=== PATIENT | female | born 1965 | race Caucasian/White ===

== ENCOUNTER → 2022-10-25 | Outpatient (CLI) | payer MEDICARE, OTHER ==
[~2022-10-25] MED LIST: INFLIXIMAB-DYYB 600 MG in SODIUM CHLORIDE 0.9% 250 ML IV NR; SODIUM CHLORIDE 0.9% 500 ML 500 ML in EMPTY BAG 1 BAG IV PRN
[2022-10-25 12:40] VITALS: PULSE 69; RESP 16; TEMP 98.3
[2022-10-25 13:54] VITALS: BP 116/77
== END ==
LOC: PROCWHC3 12:02 → EDSTATUS 12:30
PROVIDERS: ATTEND Nurse Practitioner Family
DX: K50.90 Crohn's disease, unspecified, without complications (principal); Z91.048 Other nonmedicinal substance allergy status
CPT/HCPCS: 96413; Q5103; 96415

== ENCOUNTER → 2022-12-06 | Outpatient (CLI) | payer MEDICARE, OTHER ==
[2022-12-06 12:36] VITALS: TEMP 97.9
[2022-12-06 13:53] VITALS: BP 127/88; PULSE 78; RESP 15
== END ==
LOC: PROCWHC3 12:11
PROVIDERS: ATTEND Nurse Practitioner Family
DX: K50.90 Crohn's disease, unspecified, without complications (principal); Z91.048 Other nonmedicinal substance allergy status
CPT/HCPCS: 96413; 96415; Q5103

== ENCOUNTER → 2023-01-17 | Outpatient (CLI) | payer MEDICARE, OTHER ==
[2023-01-17 12:26] VITALS: RESP 16; TEMP 97.9
[2023-01-17 13:51] VITALS: BP 111/77; PULSE 80
== END ==
LOC: PROCWHC3 11:56
PROVIDERS: ATTEND Nurse Practitioner Family
DX: K51.90 Ulcerative colitis, unspecified, without complications (principal); Z91.048 Other nonmedicinal substance allergy status
CPT/HCPCS: 96413; 96415; Q5103

== ENCOUNTER → 2023-02-28 | Outpatient (CLI) | payer MEDICARE, OTHER ==
[2023-02-28 13:04] VITALS: RESP 16; TEMP 97.7
[2023-02-28 14:41] VITALS: BP 147/95; PULSE 79
== END ==
LOC: PROCWHC3 12:01
PROVIDERS: ATTEND Nurse Practitioner Family
DX: K50.90 Crohn's disease, unspecified, without complications (principal); Z91.048 Other nonmedicinal substance allergy status
CPT/HCPCS: 96413; 96415; Q5103

== ENCOUNTER → 2023-04-11 | Outpatient (CLI) | payer MEDICARE, OTHER ==
[2023-04-11 13:22] VITALS: TEMP 97.7
[2023-04-11 13:46] VITALS: RESP 16
[2023-04-11 14:35] VITALS: BP 110/78; PULSE 80
== END ==
LOC: PROCWHC3 11:59
PROVIDERS: ATTEND Nurse Practitioner Family
DX: K50.90 Crohn's disease, unspecified, without complications (principal); Z91.048 Other nonmedicinal substance allergy status
CPT/HCPCS: 96413; 96415; Q5103

== ENCOUNTER → 2023-05-23 | Outpatient (CLI) | payer MEDICARE, OTHER ==
[2023-05-23] MEDS: SODIUM CHLORIDE 0.9% 500 ML 500 ML in EMPTY BAG 1 BAG IV PRN (12:57)
[2023-05-23] MEDS: INFLIXIMAB-DYYB 600 MG in SODIUM CHLORIDE 0.9% 250 ML IV NR (12:58)
[2023-05-23 13:14] VITALS: RESP 16; TEMP 98
[2023-05-23 13:17] LABS: Basophils # (A) 0.1 k/uL (0-0.2); Basophils % (A) 1 %; Eosinophils # (A) 0.3 k/uL (0-0.7); Eosinophils % (A) 5 %; HCT 47.2 % (34.0-46.0); HGB 15.4 gm/dL (11.4-16.0); Lymphocytes # (A) 2.2 k/uL (1.0-4.8); Lymphocytes % (A) 33 %; MCHC 32.7 g/dL (31.0-37.0); MCV 88.6 fL (80.0-100.0); Mean Platelet Volume 7.5; Monocytes # (A) 0.5 k/uL (0-1.0); Monocytes % (A) 7 %; Neutrophils # (A) 3.6 k/uL (1.3-7.7); Neutrophils % (A) 53 %; Platelet Count 296 k/uL (150-450); RBC 5.33 m/uL (3.80-5.40); RDW 12.8 % (11.5-15.5); WBC 6.9 k/uL (3.8-10.6)
[2023-05-23 13:35] LABS: ALT 36 U/L (4-34); AST 32 U/L (14-36); African American GFR (CKD) 76 (>60 ml/min/1.73 sqM); Albumin 4.1 g/dL (3.5-5.0); Alkaline Phosphatase 57 U/L (38-126); Anion Gap 7 mmol/L; Blood Urea Nitrogen 17 mg/dL (7-17); Calcium 9.5 mg/dL (8.4-10.2); Carbon Dioxide 22 mmol/L (22-30); Chloride 107 mmol/L (98-107); Glucose 97 mg/dL (74-99); Non-African American GFR(CKD) 66 (>60 ml/min/1.73 sqM); Potassium 4.6 mmol/L (3.5-5.1); Sodium 136 mmol/L (137-145); Total Bilirubin 0.5 mg/dL (0.2-1.3); Total Protein 7.4 g/dL (6.3-8.2)
[2023-05-23 14:18] VITALS: PULSE 77
[2023-05-23 14:50] VITALS: BP 116/80
== END ==
LOC: PROCWHC3 12:09
PROVIDERS: ATTEND Internal Medicine Gastroenterology
DX: K50.90 Crohn's disease, unspecified, without complications (principal); Z88.3 Allergy status to other anti-infective agents
CPT/HCPCS: 80053; 85025; 96413; 96415; Q5103

== ENCOUNTER → 2023-07-04 | Outpatient (CLI) | payer MEDICARE, OTHER ==
[2023-07-04] MEDS: SODIUM CHLORIDE 0.9% 500 ML 500 ML in EMPTY BAG 1 BAG IV PRN (13:03)
[2023-07-04 13:07] LABS: Basophils # (A) 0.1 k/uL (0-0.2); Basophils % (A) 1 %; Eosinophils # (A) 0.4 k/uL (0-0.7); Eosinophils % (A) 6 %; HCT 44.9 % (34.0-46.0); HGB 14.7 gm/dL (11.4-16.0); Lymphocytes # (A) 2.5 k/uL (1.0-4.8); Lymphocytes % (A) 38 %; MCH 29.2 pg (25.0-35.0); MCHC 32.7 g/dL (31.0-37.0); MCV 89.5 fL (80.0-100.0); Mean Platelet Volume 7.3; Monocytes # (A) 0.4 k/uL (0-1.0); Monocytes % (A) 6 %; Neutrophils % (A) 46 %; Platelet Count 311 k/uL (150-450); RBC 5.02 m/uL (3.80-5.40); RDW 12.9 % (11.5-15.5); WBC 6.5 k/uL (3.8-10.6)
[2023-07-04 13:08] VITALS: RESP 16; TEMP 97.6
[2023-07-04] MEDS: INFLIXIMAB-DYYB 600 MG in SODIUM CHLORIDE 0.9% 250 ML IV NR (13:08)
[2023-07-04 14:09] LABS: ALT 36 U/L (4-34); AST 27 U/L (14-36); African American GFR (CKD) 78 (>60 ml/min/1.73 sqM); Alkaline Phosphatase 56 U/L (38-126); Anion Gap 8 mmol/L; Blood Urea Nitrogen 17 mg/dL (7-17); Calcium 9.4 mg/dL (8.4-10.2); Carbon Dioxide 22 mmol/L (22-30); Chloride 109 mmol/L (98-107); Glucose 102 mg/dL (74-99); Non-African American GFR(CKD) 68 (>60 ml/min/1.73 sqM); Potassium 3.8 mmol/L (3.5-5.1); Sodium 139 mmol/L (137-145); Total Bilirubin 0.4 mg/dL (0.2-1.3); Total Protein 7.5 g/dL (6.3-8.2)
[2023-07-04 14:38] VITALS: BP 107/77; PULSE 76
== END ==
LOC: PROCWHC3 12:33
PROVIDERS: ATTEND Internal Medicine Gastroenterology
DX: K50.90 Crohn's disease, unspecified, without complications (principal)
CPT/HCPCS: 80053; 85025; 96413; 96415; Q5103

== ENCOUNTER → 2023-07-11 | Outpatient (CLI) | payer MEDICARE, OTHER ==
--- NOTE | 2023-07-12 07:27 | BD ---
EXAMINATION TYPE: Axial Bone Density DATE OF EXAM: 07/11/2023 CLINICAL HISTORY: 58 years old Female. ICD-10 CODE: Z13.820 Screening for osteoporosis Height: 5 ft 1 in Weight: 126 FRAX RISK QUESTIONS: Alcohol (3 or more units per day): no Family History (Parent hip fracture): no Glucocorticoids (More than 3mos): no (Ex: prednisone, prednisolone, methylprednisolone, dexamethasone, and hydrocortisone). History of Fracture in Adulthood: no Secondary Osteoporosis: 1. Type 1 Diabetes: no 2. Hyperthyroidism: no 3. Menopause before 45: no 4. Malnutrition: yes 5. Chronic liver disease: no Rheumatoid Arthritis: no Current Tobacco Use: no RISK FACTORS HISTORY OF: Surgery to Spine/Hip(right/left)/Wrist (right/left): no MEDICATIONS: Thyroid Medications: none Which medication: How Long: Osteoporosis Medications: none Which medication: How Long: EXAM MEASUREMENTS: Bone mineral densitometry was performed using the [employer]. Bone mineral density as measured about the Lumbar spine is: ----- L1-L4(G/cm2): 0.976 T Score Values are as follows: ----- L1: -1.6 ----- L2: -1.8 ----- L3: -1.7 ----- L4: -1.9 ----- L1-L4: -1.7 Z Score Values are as follows: ----- L1: -0.1 ----- L2: -0.3 ----- L3: -0.2 ----- L4: -0.4 ----- L1-L4: -0.2 baseline Bone mineral density about the R hip (g/cm2): 0.616 Bone mineral density about the L hip (g/cm2): 0.710 T Score values are as follows: -----R Neck: -3.0 -----L Neck: -2.4 -----R Total: -2.6 -----L Total: -2.4 Z Score values are as follows: -----R Neck: -1.6 -----L Neck: -0.6 -----R Total: -1.4 -----L Total: -1.3 baseline FRAX%s: The graph provided illustrates a 14.7 % chance for a major osteoporotic fx and a 4.2 % chance for the hips probability for fx in 10 years time. IMPRESSION: Osteoporosis (T Score less than -2.5). There is increased fracture risk and therapy is usually indicated based on age. Re-Screen 1-2 years. NOTE: T-SCORE=SD OF THE YOUNG ADULT MEAN.
== END | disposition home or self-care (01) ==
LOC: RADBDWWP 12:00
PROVIDERS: ATTEND Internal Medicine
DX: Z13.820 Encounter for screening for osteoporosis (principal); M85.89 Other specified disorders of bone density and structure, multiple sites; M81.0 Age-related osteoporosis without current pathological fracture; E46 Unspecified protein-calorie malnutrition
CPT/HCPCS: 77080

== ENCOUNTER → 2023-08-15 | Outpatient (CLI) | payer MEDICARE ==
[2023-08-15] MEDS: SODIUM CHLORIDE 0.9% 500 ML 500 ML in EMPTY BAG 1 BAG IV PRN (12:16)
[2023-08-15] MEDS: INFLIXIMAB-DYYB 600 MG in SODIUM CHLORIDE 0.9% 190 ML IV NR (12:22)
[2023-08-15 12:32] LABS: Basophils # (A) 0.1 k/uL (0-0.2); Basophils % (A) 1 %; Eosinophils # (A) 0.4 k/uL (0-0.7); Eosinophils % (A) 5 %; HCT 44.8 % (34.0-46.0); HGB 14.6 gm/dL (11.4-16.0); Lymphocytes # (A) 2.7 k/uL (1.0-4.8); Lymphocytes % (A) 34 %; MCH 28.5 pg (25.0-35.0); MCHC 32.5 g/dL (31.0-37.0); MCV 87.5 fL (80.0-100.0); Mean Platelet Volume 7.3; Monocytes # (A) 0.5 k/uL (0-1.0); Monocytes % (A) 7 %; Neutrophils # (A) 3.9 k/uL (1.3-7.7); Neutrophils % (A) 50 %; Platelet Count 286 k/uL (150-450); RBC 5.12 m/uL (3.80-5.40); WBC 7.8 k/uL (3.8-10.6)
[2023-08-15 12:35] VITALS: RESP 16; TEMP 97.6
[2023-08-15 13:33] VITALS: BP 110/76; PULSE 85
[2023-08-15 13:36] LABS: ALT 32 U/L (4-34); AST 28 U/L (14-36); African American GFR (CKD) 72 (>60 ml/min/1.73 sqM); Albumin 4.2 g/dL (3.5-5.0); Alkaline Phosphatase 59 U/L (38-126); Anion Gap 8 mmol/L; Blood Urea Nitrogen 15 mg/dL (7-17); Calcium 9.5 mg/dL (8.4-10.2); Carbon Dioxide 22 mmol/L (22-30); Chloride 108 mmol/L (98-107); Glucose 99 mg/dL (74-99); Non-African American GFR(CKD) 62 (>60 ml/min/1.73 sqM); Potassium 4.4 mmol/L (3.5-5.1); Sodium 138 mmol/L (137-145); Total Bilirubin 0.5 mg/dL (0.2-1.3); Total Protein 7.9 g/dL (6.3-8.2)
== END ==
LOC: PROCWHC3 11:55
PROVIDERS: ATTEND Internal Medicine Gastroenterology
DX: K50.90 Crohn's disease, unspecified, without complications (principal); Z91.048 Other nonmedicinal substance allergy status
CPT/HCPCS: 80053; 85025; 96413; 96415; Q5103

== ENCOUNTER → 2023-09-26 | Outpatient (CLI) | payer MEDICARE ==
[2023-09-26 12:28] VITALS: TEMP 98
[2023-09-26] MEDS: SODIUM CHLORIDE 0.9% 500 ML 500 ML in EMPTY BAG 1 BAG IV PRN (12:54)
[2023-09-26] MEDS: INFLIXIMAB-DYYB 600 MG in SODIUM CHLORIDE 0.9% 190 ML IV NR (12:54)
[2023-09-26 13:10] LABS: Basophils # (A) 0.1 k/uL (0-0.2); Basophils % (A) 1 %; Eosinophils # (A) 0.3 k/uL (0-0.7); Eosinophils % (A) 5 %; HCT 45.8 % (34.0-46.0); HGB 15.4 gm/dL (11.4-16.0); Lymphocytes # (A) 2.6 k/uL (1.0-4.8); Lymphocytes % (A) 39 %; MCHC 33.7 g/dL (31.0-37.0); MCV 86.1 fL (80.0-100.0); Mean Platelet Volume 7.7; Monocytes # (A) 0.5 k/uL (0-1.0); Monocytes % (A) 8 %; Neutrophils # (A) 3.1 k/uL (1.3-7.7); Neutrophils % (A) 46 %; Platelet Count 315 k/uL (150-450); RBC 5.32 m/uL (3.80-5.40); RDW 13.4 % (11.5-15.5); WBC 6.8 k/uL (3.8-10.6)
[2023-09-26 13:27] LABS: ALT 34 U/L (4-34); African American GFR (CKD) 78 (>60 ml/min/1.73 sqM); Albumin 4.6 g/dL (3.5-5.0); Anion Gap 8 mmol/L; Blood Urea Nitrogen 12 mg/dL (7-17); Calcium 9.7 mg/dL (8.4-10.2); Carbon Dioxide 22 mmol/L (22-30); Chloride 109 mmol/L (98-107); Glucose 99 mg/dL (74-99); Non-African American GFR(CKD) 68 (>60 ml/min/1.73 sqM); Sodium 139 mmol/L (137-145); Total Bilirubin 0.6 mg/dL (0.2-1.3); Total Protein 8.2 g/dL (6.3-8.2)
[2023-09-26 13:31] VITALS: RESP 16
[2023-09-26 13:41] LABS: AST 36 U/L (14-36); Alkaline Phosphatase 47 U/L (38-126); Potassium 4.5 mmol/L (3.5-5.1)
[2023-09-26 14:22] VITALS: BP 135/88; PULSE 75
== END ==
LOC: PROCWHC3 11:59
PROVIDERS: ATTEND Internal Medicine Gastroenterology
DX: K50.90 Crohn's disease, unspecified, without complications (principal)
CPT/HCPCS: 80053; 85025; 96413; 96415; Q5103

== ENCOUNTER → 2023-12-19 | Outpatient (CLI) | payer MEDICARE ==
[2023-12-19 12:03] VITALS: RESP 16; TEMP 97.8
[2023-12-19] MEDS: SODIUM CHLORIDE 0.9% 500 ML 500 ML in EMPTY BAG 1 BAG IV PRN (12:03)
[2023-12-19] MEDS: INFLIXIMAB-DYYB 600 MG in SODIUM CHLORIDE 0.9% 190 ML IV NR (12:22)
[2023-12-19 13:23] VITALS: BP 122/78; PULSE 73
== END ==
LOC: PROCWHC3 11:48
PROVIDERS: ATTEND Internal Medicine Gastroenterology
DX: K50.90 Crohn's disease, unspecified, without complications (principal)
CPT/HCPCS: 96413; 96415

== ENCOUNTER → 2024-02-06 | Outpatient (CLI) | payer MEDICARE, OTHER ==
[~2024-02-06] MED LIST changes: -INFLIXIMAB-DYYB 600 MG in SODIUM CHLORIDE 0.9% 250 ML IV NR; +SODIUM CHLORIDE 0.9% 250 ML in EMPTY BAG 1 BAG IV PRN; -SODIUM CHLORIDE 0.9% 500 ML 500 ML in EMPTY BAG 1 BAG IV PRN
[2024-02-06 12:12] VITALS: RESP 16; TEMP 96.1
[2024-02-06] MEDS: SODIUM CHLORIDE 0.9% 500 ML 500 ML in EMPTY BAG 1 BAG IV PRN (12:13)
[2024-02-06] MEDS: INFLIXIMAB-DYYB 600 MG in SODIUM CHLORIDE 0.9% 190 ML IV NR (12:30)
[2024-02-06 14:28] VITALS: BP 116/80; PULSE 80
== END ==
LOC: PROCWHC3 11:55
PROVIDERS: ATTEND Internal Medicine Gastroenterology
DX: K50.90 Crohn's disease, unspecified, without complications (principal)
CPT/HCPCS: 96413; 96415; Q5103

== ENCOUNTER → 2024-03-27 | Outpatient (CLI) | payer MEDICARE ==
[2024-03-27 12:19] VITALS: TEMP 97.4
[2024-03-27] MEDS: SODIUM CHLORIDE 0.9% 500 ML 500 ML in EMPTY BAG 1 BAG IV PRN (12:20)
[2024-03-27] MEDS: INFLIXIMAB-DYYB 600 MG in SODIUM CHLORIDE 0.9% 190 ML IV NR (12:34)
[2024-03-27 12:50] VITALS: RESP 16
[2024-03-27 13:27] VITALS: BP 121/80; PULSE 70
== END ==
LOC: PROCWHC3 11:54
PROVIDERS: ATTEND Internal Medicine Gastroenterology
DX: K50.90 Crohn's disease, unspecified, without complications (principal)
CPT/HCPCS: 96413; 96415; Q5103

== ENCOUNTER → 2024-10-01 | Outpatient (CLI) | payer MEDICARE ==
[2024-10-01 12:11] VITALS: RESP 16; TEMP 98.4
[2024-10-01] MEDS: SODIUM CHLORIDE 0.9% 500 ML 500 ML in EMPTY BAG 1 BAG IV PRN (12:12)
[2024-10-01] MEDS: INFLIXIMAB-DYYB 600 MG in SODIUM CHLORIDE 0.9% 190 ML IV NR (12:28)
[2024-10-01 13:33] VITALS: BP 109/75; PULSE 73
== END ==
LOC: PROCWHC3 11:44
PROVIDERS: ATTEND Internal Medicine Gastroenterology
DX: K50.90 Crohn's disease, unspecified, without complications (principal)
CPT/HCPCS: 96413; 96415; Q5103